=== PATIENT | female | born 1980 | race Two or more races ===

== ENCOUNTER 2016-10-24 13:18 | Emergency (ER) | payer SELFPAY ==
[~2016-10-24] VITALS: Ht 152.4 cm; Wt 84.0 kg
[2016-10-24] MEDS ORDERED: KETOROLAC 60MG/2ML VIAL IM ONE (18:30)
[2016-10-24 18:49] VITALS: BP 107/50
== END 2016-10-24 18:53 | disposition home or self-care (01) ==
LOC: ER 18:28
DX: G44.209 Tension-type headache, unspecified, not intractable (principal); M54.2 Cervicalgia; Z98.51 Tubal ligation status
CPT/HCPCS: 96372; 99283; J1885; Z7610